=== PATIENT | male | born 1960 | race American Indian/Alaskan Native ===

== ENCOUNTER 2018-11-22 07:24 | Emergency (ER) | payer MEDICARE ==
[2018-11-22 07:37] VITALS: BP 115/96
--- NOTE | 2018-11-22 08:30 | Emergency Department Report ---
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 He said that he was using a tooth pick and he thinks that the toothpick broke off in his left nostril. Denies any pain. Denies any difficulty breathing. Denies any sore throats, cough or hemoptysis. Denies any nasal bleeding MD complaint: trauma/injury (tooth in nostril) -: Last night Location: nose Severity scale (0 -10): 0 Context-Epistaxis: other (foreign body in nostril) Associated Symptoms: other (none) - Related Data Allergies Allergy/AdvReac Type Severity Reaction Status Date / Time No Known Allergies Allergy Unverified 11/22/18 07:27 ED Dental HPI - General Chief complaint: Pain General Stated complaint: EMERGENCY Time Seen by Provider: 11/22/18 07:47 Source: patient Mode of arrival: Ambulatory Limitations: No Limitations - Related Data Allergies Allergy/AdvReac Type Severity Reaction Status Date / Time No Known Allergies Allergy Unverified 11/22/18 07:27 ED Review of Systems ROS: Stated complaint: EMERGENCY Other details as noted in HPI Constitutional: denies: chills, fever ENT: other (foreign body stuck in nostril) Respiratory: denies: cough, shortness of breath, wheezing Cardiovascular: denies: chest pain, palpitations Gastrointestinal: denies: nausea, vomiting Musculoskeletal: denies: back pain, joint swelling, myalgia Skin: denies: rash Neurological: denies: headache ED Past Medical Hx - Past Medical History Previous Medical History?: Yes Hx Psychiatric Treatment: Yes (depression) - Surgical History Past Surgical History?: Yes - Family History Family history: hypertension - Social History Smoking Status: Current Every Day Smoker Substance Use Type: None ED Physical Exam - General Limitations: No Limitations General appearance: alert, in no apparent distress - Head Head exam: Present: atraumatic, normocephalic, normal inspection - Eye Eye exam: Present: normal appearance, PERRL, EOMI Pupils: Present: normal accommodation - ENT ENT exam: Present: normal exam, normal orophraynx, TM's normal bilaterally, normal external ear exam, other (face normal exam, nontender to palpate.) - Expanded ENT Exam Expanded Ear exam: Present: normal external inspection Mouth exam: Present: normal external inspection, tongue normal. Absent: drooling, trismus Teeth exam: Present: normal inspection Throat exam: Positive: normal inspection - Neck Neck exam: Present: normal inspection, full ROM. Absent: tenderness - Respiratory Respiratory exam: Present: normal lung sounds bilaterally. Absent: respiratory distress, chest wall tenderness - Cardiovascular Cardiovascular Exam: Present: regular rate, normal rhythm, normal heart sounds - Extremities Exam Extremities exam: Present: normal inspection, full ROM, normal capillary refill. Absent: tenderness, pedal edema, joint swelling - Neurological Exam Neurological exam: Present: alert, oriented X3, normal gait - Psychiatric Psychiatric exam: Present: normal affect, normal mood - Skin Skin exam: Present: warm, dry, intact, normal color. Absent: rash ED Course Vital Signs 11/22/18 07:35 Temperature 98.4 F Pulse Rate 100 H Respiratory 16 Rate Blood Pressure 115/96 O2 Sat by Pulse 99 Oximetry - Reevaluation(s) Reevaluation #1: 11/22/18 09:47 Patient stable throughout ED course and no acute distress. ED Medical Decision Making - Radiology Data Radiology results: report reviewed CT scan of the facial bones shows normal findings. This was dictated by radiologist and report reviewed by myself Findings [place] [id number] Cat Scan Report Signed Patient: SAMI BLANCO MR#: [id number] : 1960 Acct:[id number] Age/Sex: 58 / M ADM Date: 11/22/18 Loc: ED Attending Dr: Ordering Physician: FAN SALAZAR Date of Service: 11/22/18 Procedure(s): CT facial bones wo con Accession Number(s): [id number] cc: FAN SALAZAR CT FACIAL BONES WITHOUT CONTRAST INDICATION : MAIN: Reports toothpick Stuck up in his left nostril TECH NOTEs: PT C/O TICKLE IN THROAT S/P TOOTHPICK IN NOSE. TECHNIQUE: Axial imaging performed through the face with reconstructed images also reviewed. Sagittal and coronal reformatted images. All CT scans at this location are performed using CT dose reduction for ALARA by means of automated exposure control. COMPARISON: None FINDINGS: The facial bones are intact. The sinuses are well-aerated. Orbital cavities and contents are unremarkable. The nasal passages are unremarkable bilaterally. No radiopaque foreign body consistent with a toothpick is appreciated. Poor dentition is noted with multiple dental caries and periapical tooth abscesses. IMPRESSION: No foreign body is identified. The facial bones are intact. Poor dentition. Signer Name: Manuel García Jr, MD Signed: 11/22/2018 9:05 AM Workstation Name: [id number] Transcribed By: TTR Dictated By: MANUEL GARCÍA JR, MD Electronically Authenticated By: MANUEL GARCÍA JR, MD Signed Date/Time: 11/22/18904 DD/ 1 TD/TT: - Medical Decision Making Patient care reported that the possible have toothpick stuck in his left nostril. Physical findings with normal exam and CT findings was also normal. I discussed this with the patient and I told him I will refer him to ear nose and throat doctor for further evaluation and treatment. He voiced understanding. Patient discharged home in stable condition. Vital signs stable afebrile and he is nontoxic in appearance Critical care attestation.: If time is entered above; I have spent that time in minutes in the direct care of this critically ill patient, excluding procedure time. ED Disposition Clinical Impression: Normal exam Disposition: DC-01 TO HOME OR SELFCARE Is pt being admited?: No Does the pt Need Aspirin: No Condition: Stable Instructions: Normal Exam (ED) Additional Instructions: Please follow up with ear nose and throat doctor for further evaluation if you have in problems. CT scan showed no foreign body. Her condition worsens he can return to the emergency room Referrals: [facility] [Outside] - 2-3 Days LAURA GILMORE MD [Staff Physician] - 2-3 Days PRIMARY CAREMD [Primary Care Provider] - 2-3 Days Forms: Work/School Release Form(ED)
--- NOTE | 2018-11-22 09:09 | Cat Scan Report ---
CT FACIAL BONES WITHOUT CONTRAST INDICATION : MAIN: Reports toothpick Stuck up in his left nostril TECH NOTEs: PT C/O TICKLE IN THROA T S/P TOOTHPICK IN NOSE. TECHNIQUE: Axial imaging performed through the face with reconstructed images also reviewed. Sagitta l and coronal reformatted images. All CT scans at this location are performed using CT dose reduction for ALARA by means of automated exposure control. COMPARISON: None FINDINGS: The facial bones are intact. The sinuses are well-aerated. Orbital cavities and contents a re unremarkable. The nasal passages are unremarkable bilaterally. No radiopaque foreign body consiste nt with a toothpick is appreciated. Poor dentition is noted with multiple dental caries and periapica l tooth abscesses. IMPRESSION: No foreign body is identified. The facial bones are intact. Poor dentition. Signer Name: Manuel García Jr, MD Signed: 11/22/2018 9:05 AM Workstation Name: [id number]
== END 2018-11-22 09:57 | disposition home or self-care (01) ==
LOC: ED 07:24
DX: K02.9 Dental caries, unspecified (principal); K04.7 Periapical abscess without sinus; F32.9 Major depressive disorder, single episode, unspecified; F17.200 Nicotine dependence, unspecified, uncomplicated
CPT/HCPCS: 70486